=== PATIENT | female | born 1990 | race Caucasian/White ===

== ENCOUNTER 2019-08-01 05:09 | Emergency (ER) | payer SELFPAY ==
[~2019-08-01] VITALS: Ht 152.4 cm; Wt 58.0 kg
[~2019-08-01 05:09] MED LIST: ANUSOL-HC25 MG RE; CIPRO500 MG OR; FLAGYL500 MG OR; MOTRIN800 MG OR; NO CURRENT MEDS; PERCOCET 5/325M1 TAB OR; PHENERGAN SUPP RE; PRENATA4 PO; ULTRAM50 M1 OR; ULTRAM50 MG OR; ZOFRAN ODT8 MG OR; ZOFRAN4 MG/TAB PO
[2019-08-01 05:33] VITALS: BP 110/50
[2019-08-01] MEDS ORDERED: CLINDAMYCIN300 M1 PO (06:04)
== END 2019-08-01 06:10 | disposition home or self-care (01) | DRG 603 ==
LOC: ED 05:09
PROC: 0H9DXZZ Drainage of Right Lower Arm Skin, External Approach (ICD-10-PCS; principal; 2019-08-01)
DX: L02.413 Cutaneous abscess of right upper limb (principal); F19.10 Other psychoactive substance abuse, uncomplicated; B96.20 Unspecified Escherichia coli [E. coli] as the cause of diseases classified elsewhere

== ENCOUNTER 2019-08-03 14:03 | Emergency (ER) | payer SELFPAY ==
[~2019-08-03] VITALS: Ht 152.4 cm; Wt 58.2 kg
[~2019-08-03 14:03] MED LIST changes: +CLINDAMYCIN300 M1 PO
[2019-08-03 17:05] VITALS: BP 108/71
== END 2019-08-03 17:05 | disposition home or self-care (01) | DRG 951 ==
LOC: ED 14:03
DX: Z48.01 Encounter for change or removal of surgical wound dressing (principal)

== ENCOUNTER 2021-06-15 19:34 | Emergency (ER) | payer SELFPAY ==
[~2021-06-15] VITALS: Ht 152.4 cm; Wt 54.0 kg
[2021-06-15 20:16] VITALS: BP 154/105
[2021-06-15 20:30] VITALS: BP 128/88
[2021-06-15 20:40] LABS: HEMATOCRIT 33.2 % (37.0-47.0); IMMATURE GRANULOCYTES 0.4 % (0.0-5.0); MEAN CORPUSCULAR HGB 26.9 pG CALC (26.0-32.0); MEAN CORPUSCULAR HGB CONC 31.3 g/dL CAL (32.0-36.0); NEUT# 5.71 thou/uL (2.00-7.15); RED BLOOD COUNT 3.86 mill/uL (4.20-5.60); RED CELL DISTRI WIDTH 14.8 % (11.5-15.5)
[2021-06-15 20:41] LABS: URINE BILIRUBIN - DIPSTICK NEGATIVE (NEGATIVE); URINE BLOOD DIPSTICK NEGATIVE (NEGATIVE); URINE COLOR YELLOW; URINE GLUCOSE - DIPSTICK NEGATIVE (NEGATIVE); URINE KETONE NEGATIVE (NEGATIVE); URINE PH 5.5 (4.5-8.0); URINE PROTEIN - DIPSTICK NEGATIVE (NEG-TRACE); URINE SPECIFIC GRAVITY 1.025; URINE UROBILINOGEN - DIPSTICK 0.2 E.U./dL (0.2)
[2021-06-15 20:43] LABS: HEMOGLOBIN 10.4 g/dl (12.0-16.0)
[2021-06-15 20:49] LABS: URINE LEUK ESTERASE MODERATE (NEGATIVE); URINE NITRITE - DIPSTICK NEGATIVE (Negative)
[2021-06-15 20:54] LABS: URINE BACTERIA MANY hpf; URINE SQUAMOUS EPITHELIAL CELL FEW EPI/hpf (0-FEW)
[2021-06-15 20:54] LABS: PROTHROMBIN TIME 10.1 SECONDS (9.0-12.5)
[2021-06-15 20:56] LABS: ALBUMIN 3.6 g/dL (3.2-5.0); ALKALINE PHOSPHATASE 164 u/l (38-126); ANION GAP 12 (6-22 (CALC)); BILIRUBIN, TOTAL 0.2 mg/dL (0.0-1.4); BUN 11 mg/dL (7-17); BUN/CREATININE RATIO 12 (12-20 (CALC)); CARBON DIOXIDE 24 mmol/l (22-30); CHLORIDE 105 mmol/l (95-108); CREATININE 0.9 mg/dL (0.5-1.0); GFR > 60 ML/MIN (>=60 (CALC)); GFR FOR AFR.AMER. > 60 ML/MIN (>=60 (CALC)); LIPASE 55 u/l (23-300); POTASSIUM 4.1 mmol/l (3.5-5.1); SGOT/AST 60 u/l (14-36); SODIUM 138 mmol/l (137-146); TOTAL PROTEIN 7.4 g/dL (6.3-8.2)
[2021-06-15 21:00] VITALS: BP 126/87
[2021-06-15 21:04] LABS: MYOGLOBIN 21 ng/mL (0 - 62)
[2021-06-15 23:12] VITALS: BP 139/98
[2021-06-15] MEDS ORDERED: KEFLEX500 MG PO (23:23)
[2021-06-15] MEDS ORDERED: CIPROFLOXACN500 MG PO (23:23)
[2021-06-15 23:25] VITALS: BP 139/98
== END 2021-06-15 23:32 | disposition left against medical advice (07) | DRG 603 ==
LOC: ED 19:34
PROVIDERS: Nurse Practitioner
PROC: 0H9EXZZ Drainage of Left Lower Arm Skin, External Approach (ICD-10-PCS; principal; 2021-06-15)
DX: L02.414 Cutaneous abscess of left upper limb (principal); R07.9 Chest pain, unspecified; R06.02 Shortness of breath; F19.10 Other psychoactive substance abuse, uncomplicated; F17.200 Nicotine dependence, unspecified, uncomplicated; Z91.19 Patient's noncompliance with other medical treatment and regimen; Z86.711 Personal history of pulmonary embolism
CPT/HCPCS: Q9967